=== PATIENT | male | born 1995 | race Caucasian/White ===

== ENCOUNTER 2017-03-26 20:52 | Emergency (ER) | payer BC ==
[~2017-03-26] VITALS: Ht 175.3 cm; Wt 84.3 kg
[2017-03-26 23:23] VITALS: BP 152/93
== END 2017-03-26 23:24 | disposition home or self-care (01) ==
LOC: EME 20:52
PROC: 0RSJXZZ Reposition Right Shoulder Joint, External Approach (ICD-10-PCS; principal; 2017-03-26)
DX: S43.014A Anterior dislocation of right humerus, initial encounter (principal); F90.9 Attention-deficit hyperactivity disorder, unspecified type; W00.0XXA Fall on same level due to ice and snow, initial encounter; Y93.23 Activity, snow (alpine) (downhill) skiing, snowboarding, sledding, tobogganing and snow tubing
CPT/HCPCS: 73030; 99281; 99284; J2060; J3010